=== PATIENT | female | born 1990 | race Caucasian/White ===

== ENCOUNTER 2016-11-03 19:21 | Emergency (ER) | payer OTHER ==
[~2016-11-03 19:21] MED LIST: ADVAIR 250-501 EACH IH; ALBUTEROL17 GM INH; ALLERCLEAR10 MG PO; AMITRIPTYLINE H50 MG PO; AMITRYPTYLINE PO; CLARITIN10 MG PO; FLONASE16 GM; PERCOCET7.5 PO; PREDNISONE10 MG/DOSE PO; TESSALON PERLE100 M1 PO; ZITHROMAX500 MG PO
[2016-11-03] MEDS ORDERED: NAPROSYN-EC500 MG (19:35)
[2016-11-03] MEDS ORDERED: HYDROXYZINE HCL25 GM (19:35)
[2016-11-03] MEDS ORDERED: ALBUTEROL20 ml (19:36)
== END 2016-11-03 20:44 | disposition home or self-care (01) ==
LOC: SED 19:21
DX: S39.012A Strain of muscle, fascia and tendon of lower back, initial encounter (principal); F41.9 Anxiety disorder, unspecified; G43.909 Migraine, unspecified, not intractable, without status migrainosus; F32.9 Major depressive disorder, single episode, unspecified; Z88.2 Allergy status to sulfonamides; Z88.8 Allergy status to other drugs, medicaments and biological substances; X50.0XXA Overexertion from strenuous movement or load, initial encounter; Y92.009 Unspecified place in unspecified non-institutional (private) residence as the place of occurrence of the external cause
CPT/HCPCS: 99283